=== PATIENT | male | born 1995 | race Hispanic/Latino ===

== ENCOUNTER 2016-10-03 14:02 | Emergency (ER) | payer OTHER ==
[2016-10-03 14:09] VITALS: BP 122/80; PULSE 88; RESP 20; TEMP 98.5; O2SAT 100
--- NOTE | 2016-10-03 14:21 | ED PDOC ---
HPI: Fever Fever Onset Was: 09/29/16 What Antipyretic Given Prior To Arrival: Acetaminophen (tylenol) Recent Sick Contacts: Yes (housemates) Have you had recent travel within the past 21 days to any of the following countries: [place], [place], [place] or [place]?: No Does Patient Have Hx Of Febrile Seizures: No Did The Patient Have A Seizure Today: No Symptoms Associated With Fever: Cough (productive of dark yellow phlegm), Other (burning chest pain only when coughing) Additional Comments: 21 year old male with no pertinent medical history presents to the ED with complaints of a cough that started 5x days ago along with a fever that resolved 3x days ago. He reports that he has the "common cold symptoms" including a sore throat, left ear pain, sweating, and a cough productive of dark yellow phlegm. He reports that he has taken tylenol and cough suppressant with mild relief. He denies having body aches, head ache, or any other symptoms. PMD: Alex Elena MD Past Medical History Reviewed: Historical Data, Nursing Documentation, Vital Signs Vital Signs: Last Vital Signs Temp 98.5 F 10/03/16 14:05 Pulse 88 10/03/16 14:05 Resp 20 10/03/16 14:05 BP 122/80 10/03/16 14:05 Pulse Ox 100 10/03/16 14:29 - Medical History PMH: Anxiety, Depression Denies: Diabetes, Hepatitis, HIV, HTN, Seizures, Sexually Transmitted Disease - Surgical History Surgical History: Appendectomy - Family History Family History: States: Unknown Family Hx - Living Arrangements Living Arrangements: With Friends/Others - Social History Current smoker - smoking cessation education provided: No Alcohol: None Drugs: Denies - Home Medications Home Medications: Ambulatory Orders Medication Instructions Recorded Famotidine [Pepcid] 20 mg PO BID PRN #10 tab 10/29/14 Esomeprazole Magnesium [Nexium 20 mg PO DAILY #21 ecc 06/11/15 24Hr] Famotidine [Pepcid] 20 mg PO BID #28 tab 07/26/15 Ondansetron [Zofran] 4 mg PO Q8H #9 tab 07/26/15 Dextromethorphan Polistirex 30 mg PO BID #100 palmer.er.12h 10/03/16 [Delsym] - Allergies Allergies/Adverse Reactions: Allergies Allergy/AdvReac Type Severity Reaction Status Date / Time No Known Allergies Allergy Verified 01/03/16 15:33 Review of Systems ROS Statement: Except As Marked, All Systems Reviewed And Found Negative Constitutional: Positive for: Fever (for 2x days, has resolved 3x days ago), Sweats ENT: Positive for: Ear Pain (left ear), Throat Pain Cardiovascular: Positive for: Chest Pain (burning when coughing) Respiratory: Positive for: Cough, Sputum (dark yellow with cough) Physical Exam - Reviewed Nursing Documentation Reviewed: Yes Vital Signs Reviewed: Yes - Physical Exam Appears: Positive for: Well, Non-toxic, No Acute Distress Head Exam: Positive for: ATRAUMATIC, NORMOCEPHALIC Skin: Positive for: Normal Color, Warm, Dry Eye Exam: Positive for: Normal appearance, PERRL ENT: Positive for: TM Is/Are (normal), Pharyngeal Erythema (mild). Negative for : Tonsillar Swelling Cardiovascular/Chest: Positive for: Regular Rate, Rhythm Respiratory: Positive for: Normal Breath Sounds Lymphatic: Positive for: Normal Exam. Negative for: Adenopathy Neurologic/Psych: Positive for: Alert, Oriented (3x) - ECG O2 Sat by Pulse Oximetry: 100 (RA) Pulse Ox Interpretation: Normal - Radiology X-Ray: Interpreted by Ga X-Ray Interpretation: No Acute Disease Medical Decision Making Medical Decision Makin:05 Initial impression: 21 year old male with a cough and throat pain. Differential diagnoses include but are not limited to a cold. Rule out pneumonia. Initial plan: * XRay chest 2 views * reevaluation chest xray : negative pt Rx dextromethophan and advised to use supportive care for cough. Scribe Attestation: Documented by Krystal Nguyen, acting as a scribe for Shobha Rudolph PA-C. Provider Scribe Attestation: All medical record entries made by the Scribe were at my direction and personally dictated by me. I have reviewed the chart and agree that the record accurately reflects my personal performance of the history, physical exam, medical decision making, and the department course for this patient. I have also personally directed, reviewed, and agree with the discharge instructions and disposition. Disposition - Clinical Impression Clinical Impression: Cough - Patient ED Disposition Is Patient to be Admitted: No Counseled Patient/Family Regarding: Studies Performed, Diagnosis, Need For Followup, Rx Given - Disposition Disposition: Routine/Home Disposition Time: 14:46 Condition: STABLE Prescriptions: Dextromethorphan Polistirex [Delsym] 30 mg PO BID #100 palmer.er.12h Instructions: Upper Respiratory Infection (ED)
--- NOTE | 2016-10-03 16:24 | RAD ---
HISTORY: cough COMPARISON: 08/04/2009 TECHNIQUE: Chest PA and lateral FINDINGS: LUNGS: No active pulmonary disease. PLEURA: No significant pleural effusion identified. No pneumothorax apparent. CARDIOVASCULAR: Normal. OSSEOUS STRUCTURES: No significant abnormalities. VISUALIZED UPPER ABDOMEN: Normal. OTHER FINDINGS: None. IMPRESSION: No active disease.
== END 2016-10-03 15:09 | disposition home or self-care (01) ==
LOC: H.ER 14:02
DX: J06.9 Acute upper respiratory infection, unspecified (principal); R05 Cough